=== PATIENT | female | born 1935 | race Caucasian/White ===

== ENCOUNTER 2016-10-07 14:04 | Emergency (ER) | payer OTHER, MEDICARE ==
[2016-10-07 14:16] VITALS: BP 140/99; PULSE 77; TEMP 97.8; BMI 26.2
--- NOTE | 2016-10-07 15:28 | PDOC ---
History of Present Illness - General Chief Complaint: Injury Stated Complaint: RT FOOT PAIN/ STEPPED ON OMAR NAIL Time Seen by Provider: 10/07/16 14:56 History Source: Patient Exam Limitations: No Limitations - History of Present Illness Initial Comments: 10/07/16 15:27 CHIEF COMPLAINT: Puncture wound HISTORY OF PRESENT ILLNESS: This is an 81-year-old female with history of hypertension and hyperlipidemia who presents for evaluation of a puncture wound to the right foot. Patient stepped on a nail while wearing shoes just prior to arrival. REVIEW OF SYSTEMS: GENERAL/CONSTITUTIONAL: No fever or chills. No weakness. No weight change. MUSCULOSKELETAL: No joint or muscle swelling or pain. No neck or back pain. SKIN: See HPI. NEUROLOGIC: No loss of sensation. HEMATOLOGIC/LYMPHATIC: No anemia, easy bleeding, or history of blood clots. ALLERGIC/IMMUNOLOGIC: No hives or skin allergy. No latex allergy. PHYSICAL EXAM: GENERAL: The patient is awake, alert, and fully oriented, in no acute distress. EXTREMITIES: Normal range of motion, no edema. NEUROLOGICAL: Normal speech, normal gait. CN II-XII grossly intact. PSYCH: Normal mood, normal affect. SKIN: Warm, dry, normal turgor. Superficial puncture wound to plantar aspect of right mid foot, no active bleeding, no retained foreign body. Past History - Past Medical History Allergies/Adverse Reactions: Allergies Allergy/AdvReac Type Severity Reaction Status Date / Time aspirin Allergy Vomiting Verified 10/07/16 14:16 Home Medications: Ambulatory Orders Atorvastatin Ca [Lipitor -] 20 mg PO HS 11/29/14 Losartan Potassium [Cozaar] 100 mg PO DAILY 11/29/14 HTN: Yes Hypercholesterolemia: Yes - Surgical History Lung Surgery: Yes (R LUNG SX) - Immunization History Immunization Up to Date: Yes - Psycho/Social/Smoking Cessation Hx Anxiety: No Suicidal Ideation: No Smoking History: Never smoked Hx Alcohol Use: Yes (SOCIAL) Drug/Substance Use Hx: No Substance Use Type: None *Physical Exam - Vital Signs Last Vital Signs Temp Pulse Resp BP Pulse Ox 97.8 F 77 20 140/99 98 10/07/16 14:12 10/07/16 14:12 10/07/16 14:12 10/07/16 14:12 10/07/16 14:12 Medical Decision Making - Medical Decision Making 10/07/16 15:39 A/P: 81 year old female with puncture wound of foot. Received tetanus booster at previous visit here on 11/29/14. -Wound irrigation with saline -Bacitracin -Dressing -Limit weight-bearing -Observe off abx *DC/Admit/Observation/Transfer Diagnosis at time of Disposition: Puncture wound - Discharge Dispostion Admit: No - Patient Instructions Printed Discharge Instructions: DI for Puncture Wound Additional Instructions: -Wash the wound daily with soap and water, pat dry, and apply bacitracin -Limit weight-bearing -You received a tetanus vaccine at your last visit on 11/29/14 -Return here for redness/pus around the wound or any other concerning symptoms
== END 2016-10-07 15:35 | disposition home or self-care (01) ==
LOC: JERFT 14:04
DX: S91.331A Puncture wound without foreign body, right foot, initial encounter (principal); W22.09XA Striking against other stationary object, initial encounter; Y93.89 Activity, other specified; Y92.9 Unspecified place or not applicable; I10 Essential (primary) hypertension; E78.00 Pure hypercholesterolemia, unspecified
CPT/HCPCS: 99281-25